=== PATIENT | male | born 1955 | race Caucasian/White ===

== ENCOUNTER 2020-02-17 16:34 | Emergency (ER) | payer MEDICARE, OTHER ==
[~2020-02-17] VITALS: Ht 182.9 cm; Wt 90.7 kg
[~2020-02-17 16:34] MED LIST: ANDROGEL; ASA81BEC PO; BRILINTA60 MG PO; CLARITIN10 MG PO; DESMOPRESSIN A0.2 M2 PO; EFFIENT10 MG PO; ESCITALOPRAM OX20 MG PO; FIBER THERAPY500 MG PO; HYTRIN; HYTRIN 5 M5 MG/1 CAP PO; IMIPRAMINE HCL10 MG PO; LIPITOR10 MG PO; LOPERAMIDE 2 MG2 M1 PO; LOPRESSOR 50 MG PO; LOPRESSOR 50 MG50 M1 PO; METFORMIN HCL500 MG PO; MICARDIS HCT 41 EACH PO; NITROGLYCERIN0.4 MG SL; RANEXA500 MG PO; SIMVASTATIN40 MG PO; TELMISARTAN-HC1 EAC2 PO; TESTIM5 GM; VIBERZI75 MG PO; VITAMIN D250000 UNIT PO; ZESTRIL PO
[2020-02-17] MEDS ORDERED: KLOR-CON M2020 MEQ PO (16:58)
[2020-02-17] MEDS ORDERED: QUESTRAN PACKET4 GM PO (16:59)
[2020-02-17] MEDS ORDERED: VOLTAREN GEL 1100 G1 TOP (16:59)
[2020-02-17] MEDS ORDERED: VITAMIN D-40010 MCG PO (16:59)
[2020-02-17] MEDS ORDERED: ATORVASTATIN CA20 MG PO (16:59)
[2020-02-17] MEDS ORDERED: NORVASC 2.5 MG2.5 M1 PO (16:59)
[2020-02-17] MEDS ORDERED: FLONASE 0.05%50 MCG NARES (17:00)
[2020-02-17] MEDS ORDERED: ESCITALOPRA5 MG/5 ML PO (17:00)
[2020-02-17] MEDS ORDERED: AVALIDE 150-121 EACH PO (17:01)
[2020-02-17] MEDS ORDERED: KEFLEX500 M2 PO (17:58)
[2020-02-17 18:22] VITALS: BP 139/68
== END 2020-02-17 18:23 | disposition home or self-care (01) ==
LOC: M.ERS 16:34
DX: S62.662A Nondisplaced fracture of distal phalanx of right middle finger, initial encounter for closed fracture (principal); S61.212A Laceration without foreign body of right middle finger without damage to nail, initial encounter; I10 Essential (primary) hypertension; Z88.5 Allergy status to narcotic agent; W23.0XXA Caught, crushed, jammed, or pinched between moving objects, initial encounter; Y93.89 Activity, other specified; Y92.89 Other specified places as the place of occurrence of the external cause; Y99.8 Other external cause status

== ENCOUNTER → 2020-12-02 | Outpatient (CLI) | payer MEDICARE, OTHER ==
[~2020-12-02] VITALS: Ht 182.9 cm; Wt 118.8 kg
[2020-12-02] VITALS (8 sets, daily range): BP systolic 127–151; BP diastolic 68–84
[~2020-12-02] MED LIST changes: +ATORVASTATIN CA20 MG PO; +AVALIDE 150-121 EACH PO; +CARVEDILOL12.5 MG PO; +CHILDREN'S ZYRT10 M1 PO; +ESCITALOPRA5 MG/5 ML PO; +FLONASE 0.05%50 MCG NARES; +GLIMEPIRIDE1 MG PO; -HYTRIN 5 M5 MG/1 CAP PO; +IRON325 M1 PO; +KEFLEX500 M2 PO; +KLOR-CON M2020 MEQ PO; +NAPROXEN SODIU220 M2 PO; +NORVASC 2.5 MG2.5 M1 PO; +QUESTRAN PACKET4 GM PO; +TERAZOSIN HCL10 MG PO; +VITAMIN D-40010 MCG PO; +VOLTAREN GEL 1100 G1 TOP
[2020-12-02 08:34] LABS: HEMATOCRIT 37.9 % (42.0-52.0); HEMOGLOBIN 13.3 gm/dL (14.0-18.0); MCH 31.2 pg (26.0-34.0); MCV 88.9 fL (80.0-100.0); MPV 7.2 fl. (7.2-11.1); RBC 4.26 mil/uL (4.50-6.00); RDW-CV 13.5 % (10.5-14.5); WBC 5.1 thou/uL (4.0-11.0)
[2020-12-02 08:41] LABS: ANION GAP 8 mmol/L (7-16); BUN 12 mg/dL (7-18); CALCIUM 8.6 mg/dL (8.5-10.1); CHLORIDE 100 mmol/L (98-107); CO2 25 mmol/L (21-32); CREATININE 0.9 mg/dL (0.6-1.3); GLUCOSE 119 mg/dL (70-99); POTASSIUM 4.3 mmol/L (3.5-5.1); SODIUM 133 mmol/L (136-145)
[2020-12-02 08:45] LABS: APTT 23.1 Seconds (25.0-31.3); PROTIME 10.5 Seconds (9.20-11.50)
[2020-12-02 08:46] LABS: ALBUMIN 3.8 g/dL (3.4-5.0); ALKALINE PHOSPHATASE 64 U/L (46-116); CHOLESTEROL 107 mg/dL (<200); HDL CHOLESTEROL 47 mg/dL (>40); LDL CHOLESTEROL 40 mg/dL (<100); SGOT 24 U/L (15-37); SGPT 50 U/L (30-65); TC:HDL 2.3 Ratio (Not establshd); TOTAL BILIRUBIN 0.6 mg/dL (<0.1-1.0); TOTAL PROTEIN 6.4 g/dL (6.4-8.2); TRIGLYCERIDE 103 mg/dL (<150); VLDL 21 mg/dL (<40)
[2020-12-02 08:50] LABS: SERUM ASSESSMENT Clear
--- NOTE | 2020-12-02 12:18 | EKG ---
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1955 Requested By: Keon Marie Order Number: [id number] Reading MD: Keon Marie Measurements Intervals [place] Rate: 59 P: 27 DC: 206 QRS: -55 QRSD: 100 T: 103 QT: 427 QTc: 423 Interpretive Statements Sinus rhythm Left anterior fascicular block Abnormal R-wave progression, late transition Nonspecific T abnormalities, lateral leads Baseline wander in lead(s) III,aVL Compared to ECG 12/20/2016 12:40:49 Left ventricular hypertrophy no longer present Early repolarization no longer present Electronically Signed On 12-02-2020 12:17:58 BEATER ENGINEER by Keon Marie [email or web address] <ELECTRONICALLY SIGNED> By: Keon Marie MD, [facility] 12/02/20 1217 5 5 Keon Marie MD, [facility] /EPI
--- NOTE | 2020-12-02 13:45 | CARD ---
[address] [address] CARDIAC CATH REPORT Name: DEONTEMAYLIN Prashant [id number] Admission: 12/02/20 Attend Phys: Keon Marie MD, F Discharge: Date of : 53 Report #: [id number] THIS REPORT FOR: cc: Ulysses Wynn Ghaison F. DO ~ Keon Marie MD [facility] ADDENDUM APPROVED REPORT Study performed: 12/02/2020 09:24:50 Patient Details Patient Status: Out-Patient Room #: The patient is a 65 year-old male Event Personnel Marzena Vincent, Monitor Whitney De Leon, BELIA Petit, [facility] Procedures Performed diagnostic cardiac catheterization [facility] w/o coronaries and ISVA Indication Dyspnea Risk Factors Dysplipidemia , Hypertension Previous Procedures/Diagnoses Previous CABGPrevious PCI, Previous Valve Surgery Admission/Lab Medications/Medications given during procedure Heparin Unfract. Procedure Narrative The patient was brought electively to the Cardiac Catheterization Laboratory and was prepped and draped in a sterile manner. The right wrist was infiltrated with 1% Lidocaine subcutaneous anesthesia. A 6 sheath was inserted into the right radial artery. Coronary angiography was performed using coronary diagnostic catheters. The right coronary system was accessed and visualized with a Diagnostic catheter. The left coronary system was accessed and visualized with a Diagnostic catheter. Left ventricular/Aortic Valve gradient assessed [address] [address] CARDIAC CATH REPORT Name: MAYLIN CLEMONS Prashant Room: [facility]#: [id number] Admission: 12/02/20 Attend Phys: Keon Marie MD, F Discharge: Date of : 53 Report #: [id number] via catheter pullback. Closure device was deployed with a 6 Fr vascband. The patient tolerated the procedure well and there were no complications associated with the procedure. There was no hematoma. Intraoperative Conscious Sedation Sedation start time: 0954 Case end Time: 1026 Versed 3.0 mg Coronary Angiography The patient's coronary anatomy is right dominant. [place] Artery Percent Stenosis Grafts (Complete if Previous CABG=Yes: Percent Stenosis) Attempted cannulating a SVG with both a JR4 and left SVG diagnostic catheters but no SVG's were identified. Diagnostic Cath Left Main 0% stenosis LAD 50% proximal and 40% distal stenosis Diagonal 1 proximally occluded and filled distally by bridging collaterals Circumflex 0% stenosis OM3 retrograd flow noted into occluded SVG Right Coronary proximal and distal stent with 0% stenosis. 30% mid stenosis noted Left Ventriculography Left Ventriculography was not performed. Aortic root injection showed trace aortic insufficiency. No patent SVG's were identified. Hemodynamics The aortic pressure is 106/51 mmHg with a mean of 62 mmHg. The left ventricular pressure is 107 mmHg with a mean of mmHg. The left ventricular end diastolic pressure is 12 mmHg. There was no gradient across the aortic valve upon pullback. Pullback from the left ventricle to the aorta revealed no gradient across the aortic valve. Conclusion 1. chronically occluded first diagonal branch that filled by collaterals 2. SVG filled retrograde from the third marginal branch and [facility] [address] [place] [address] CARDIAC CATH REPORT Name: MAYLIN CLEMONS Room: [facility]#: [id number] Admission: 12/02/20 Attend Phys: Keon Marie MD, F Discharge: Date of : 53 Report #: [id number] appearred chronically occluded. 3. patent stents in the proximal and distal RCA 4. trace posthetic tissue aortic valve insufficiency noted on aortic root injection. Recommendations Aggressive Medical Therapy <ELECTRONICALLY SIGNED> By: Keon Marie MD, FACC 12/02/20 1344 1344 1344Ddiann Marie MD, FACC /INF
== END | disposition home or self-care (01) ==
LOC: M.CL 07:54
PROVIDERS: ATTEND Internal Medicine Cardiovascular Disease
DX: R06.00 Dyspnea, unspecified (principal); I25.810 Atherosclerosis of coronary artery bypass graft(s) without angina pectoris; I10 Essential (primary) hypertension; E11.9 Type 2 diabetes mellitus without complications; E78.00 Pure hypercholesterolemia, unspecified; E78.5 Hyperlipidemia, unspecified; G47.30 Sleep apnea, unspecified; Z95.1 Presence of aortocoronary bypass graft; Z98.890 Other specified postprocedural states; Z90.49 Acquired absence of other specified parts of digestive tract; Z79.899 Other long term (current) drug therapy; Z85.05 Personal history of malignant neoplasm of liver; Z85.038 Personal history of other malignant neoplasm of large intestine; Z88.8 Allergy status to other drugs, medicaments and biological substances; Z20.828 Contact with and (suspected) exposure to other viral communicable diseases; Z79.82 Long term (current) use of aspirin; Z79.01 Long term (current) use of anticoagulants; Z95.2 Presence of prosthetic heart valve

== ENCOUNTER 2021-08-11 10:00 | Observation (INO) | payer MEDICARE, OTHER ==
[~2021-08-11] VITALS: Ht 182.9 cm; Wt 113.4 kg
[2021-08-11 10:33] VITALS: BP 191/98
[2021-08-11] MEDS ORDERED: LOSARTAN-HCTZ1 EAC3 PO (10:40)
[2021-08-11 11:50] LABS: URINE BILIRUBIN NEGATIVE (Negative); URINE BLOOD NEGATIVE (Negative); URINE CLARITY CLEAR; URINE COLOR YELLOW; URINE GLUCOSE-RANDOM NEGATIVE (Negative); URINE KETONES NEGATIVE (Negative); URINE LEUKOCYTES-REFLEX NEGATIVE (Negative); URINE NITRITE-REFLEX NEGATIVE (Negative); URINE PROTEIN NEGATIVE (Negative); URINE SPECIFIC GRAVITY >= 1.030 (1.005-1.030); URINE UROBILINOGEN 0.2 E.U./dl (0.2-1.0)
[2021-08-11 12:03] LABS: HEMATOCRIT 40.3 % (42.0-52.0); HEMOGLOBIN 14.1 gm/dL (14.0-18.0); MCV 88.7 fL (80.0-100.0); NUCLEATED RBCS 0 /100WBC; PLATELET COUNT* 231 thou/uL (150-400); RBC 4.55 mil/uL (4.50-6.00); WBC 15.1 thou/uL (4.0-11.0)
[2021-08-11 12:12] LABS: CALCIUM 9.8 mg/dL (8.5-10.1); POTASSIUM 4.5 mmol/L (3.5-5.1)
[2021-08-11 12:16] LABS: ALBUMIN 4.5 g/dL (3.4-5.0); TOTAL BILIRUBIN 1.1 mg/dL (<0.1-1.0); TOTAL PROTEIN 7.8 g/dL (6.4-8.2)
[2021-08-11 12:38] LABS: ABSOLUTE EOSINOPHILS 0.3 thou/uL (0.0-0.7); ABSOLUTE LYMPHOCYTES 1.7 thou/uL (0.8-5.3); ABSOLUTE MONOCYTES 0.9 thou/uL (0.0-1.2); ABSOLUTE NEUTROPHILS 12.2 thou/uL (1.6-8.1); PLATELET ESTIMATE ADEQUATE
--- NOTE | 2021-08-11 13:04 | EKG ---
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1955 Requested By: Ondina Owusu Order Number: [id number] MD: Keon Marie Measurements Intervals [place] Rate: 69 P: 9 WV: 197 QRS: -62 QRSD: 104 T: 79 QT: 412 QTc: 442 Interpretive Statements Sinus rhythm Left anterior fascicular block Abnormal R-wave progression, late transition Borderline T wave abnormalities Baseline wander in lead(s) V1,V2 Compared to ECG 12/02/2020 09:26:24 No significant changes Electronically Signed On 08-11-2021 13:04:37 CDT by Keon Marie [email or web address] <ELECTRONICALLY SIGNED> By: Keon Marie MD, FAC 08/11/21 1304 1152 1152 Keon Marie MD, FAC /EPI
[2021-08-11 17:41] VITALS: BP 150/72
--- NOTE | 2021-08-11 18:57 | NUR ---
PATIENT ARRIVED TO UNIT APPROX. 1750 FROM ER FOR ABDOMINAL PAIN. PATIENT IS A&OX4, PLEASANT AND COOPERATIVE WITH CARES. PATIENT UP AD DAWIT IN ROOM. FLUIDS AND PRN MEDICATIONS ADMINISTERED ORDERED. CALL LIGHT WITHIN REACH.
[2021-08-11 19:45] VITALS: BP 136/69
[2021-08-12 04:00] VITALS: BP 149/78
[2021-08-12 04:38] LABS: HEMATOCRIT 33.9 % (42.0-52.0); MCH 31.6 pg (26.0-34.0); MCHC 35.1 g/dL (28.0-37.0); MCV 90.1 fL (80.0-100.0); MPV 7.2 fl. (7.2-11.1); RBC 3.76 mil/uL (4.50-6.00); RDW-CV 13.6 % (10.5-14.5); WBC 9.1 thou/uL (4.0-11.0)
[2021-08-12 04:47] LABS: CALCIUM 7.9 mg/dL (8.5-10.1); HEMOGLOBIN 11.9 gm/dL (14.0-18.0); POTASSIUM 3.6 mmol/L (3.5-5.1)
--- NOTE | 2021-08-12 05:27 | NUR ---
PT A&O X 4. ON RA. FENTANYL GIVEN X 1 FOR PAIN. DENIED N/V. NPO EXCEPT ICECHIPS. UP AD DAWIT. PT SAID HE FEELS BETTER THIS MORNING AND HE IS READY FOR BREAKFAST. NO OTHER CONCERNS AT THIS TIME. CALL LIGHT WITHIN REACH. WILL CONTINUE TO MONITOR.
[2021-08-12 08:00] VITALS: BP 138/79
[2021-08-12 12:25] VITALS: BP 147/78
[2021-08-12 13:09] LABS: ABSOLUTE EOSINOPHILS 0.2 thou/uL (0.0-0.7); ABSOLUTE LYMPHOCYTES 1.3 thou/uL (0.8-5.3); ABSOLUTE MONOCYTES 0.7 thou/uL (0.0-1.2); ABSOLUTE NEUTROPHILS 3.9 thou/uL (1.6-8.1); BASOPHILS 0.3 %; EOSINOPHILS 2.7 %; HEMATOCRIT 33.6 % (42.0-52.0); HEMOGLOBIN 11.7 gm/dL (14.0-18.0); LYMPHOCYTES 21.1 %; MCHC 34.9 g/dL (28.0-37.0); MCV 89.1 fL (80.0-100.0); MONOCYTES 11.3 %; MPV 6.7 fl. (7.2-11.1); NUCLEATED RBCS 0 /100WBC; PLATELET COUNT* 187 thou/uL (150-400); POLYS 64.6 %; RBC 3.78 mil/uL (4.50-6.00); RDW-CV 13.8 % (10.5-14.5); WBC 6.1 thou/uL (4.0-11.0)
[2021-08-12 17:09] VITALS: BP 142/78
--- NOTE | 2021-08-12 19:49 | NUR ---
patient dicharge instruction competed , including discharge medication . removed IV line before discharge . No issue voiced at this time.
== END 2021-08-12 19:15 | disposition home or self-care (01) ==
LOC: M.ERS 10:00 → M.TBA-ER 14:59 → M.2W 17:50
PROVIDERS: Physician Assistant; ADMIT Internal Medicine; ATTEND Internal Medicine
DX: K43.9 Ventral hernia without obstruction or gangrene (principal); Z20.822 Contact with and (suspected) exposure to COVID-19; K56.609 Unspecified intestinal obstruction, unspecified as to partial versus complete obstruction; E11.9 Type 2 diabetes mellitus without complications; E78.5 Hyperlipidemia, unspecified; G47.30 Sleep apnea, unspecified; I25.2 Old myocardial infarction; Z85.038 Personal history of other malignant neoplasm of large intestine; D72.829 Elevated white blood cell count, unspecified; E87.1 Hypo-osmolality and hyponatremia; M62.08 Separation of muscle (nontraumatic), other site; Z79.84 Long term (current) use of oral hypoglycemic drugs; Z79.899 Other long term (current) drug therapy

== ENCOUNTER 2021-09-08 07:34 | Inpatient (IN) | payer MEDICARE, OTHER ==
[~2021-09-08] VITALS: Ht 182.9 cm; Wt 117.8 kg
--- NOTE | ~2021-09-08 | H ---
[address] [address] HISTORY AND PHYSICAL Name: MAYLIN CLEMONS Room: [address] IN ..#: [id number] Admission: 09/08/21 Attend Phys: Quinton Wang DO Discharge: 09/10/21 Date of : 53 Report #: [id number] THIS REPORT FOR: cc: Lizette Jacques MD, Lin W. MD [facility],Medical Records Staff ~ Please refer to the History and Physical performed in the physician's office. By: 0647Medical Records Staff [facility] /JAE
--- NOTE | ~2021-09-08 | OP ---
[address] [address] OPERATIVE REPORT Name: MAYLIN CLEMONS Room: [place] [address] ADM IN .R.#: [id number] Admission: 09/08/21 Attend Phys: Quinton Wang DO Discharge: Date of : 53 Report #: [id number] THIS REPORT FOR: cc: Lizette Jacques MD, Lin W. MD Kramer, Adam P. DO ~ cc: Lizette Jacques MD DATE OF SURGERY: 09/08/2021 REFERRING PHYSICIAN: Lizette Jacques MD PREOPERATIVE DIAGNOSIS: Ventral hernia. POSTOPERATIVE DIAGNOSIS: Ventral hernia plus intraabdominal adhesions. PROCEDURES: Da Dann robotic-assisted laparoscopic ventral hernia repair with 15 x [address] mesh and lysis of adhesions lasting greater than 90 minutes. SURGEON: Quinton Wang DO SPRINKLER TRUCK DRIVER: Jose Leonard DO, PGY1, resident. SECOND RN PERIOPERATIVE: Student, Dr. Ethan Albert, MS4. ANESTHESIA: General endotracheal and TAP blocks. ESTIMATED BLOOD LOSS: Less than 20 mL. COMPLICATIONS: None. DESCRIPTION OF PROCEDURE: After obtaining proper consents and discussing risks and complications with the patient, he was taken to the operating room, laid in the supine position and administered general anesthesia. TAP blocks were then performed by anesthesia as well. He was then prepped and draped in the usual sterile fashion. A timeout was performed. We confirmed the appropriate patient and procedure. Preoperative antibiotics had been given. SCDs were in place. We then made a small right subcostal incision. This was carried down through the skin into the subcutaneous tissue using electrocautery for hemostasis. I then used a 12 mm Visiport and a [place] 0-degree scope to enter the peritoneal cavity. Once peritoneal cavity was entered, insufflation was begun. Once insufflation was complete, we attempted to visualize the entire abdominal cavity; however, there were quite a few adhesions throughout the entire abdomen. The right lower and right lateral quadrants were free of adhesions so I was able to place two more da Dann ports there. [place] [address] OPERATIVE REPORT Name: MAYLIN CLEMONS Room: [place] [address] [facility].#: [id number] Admission: 09/08/21 Attend Phys: Quinton Wang DO Discharge: Date of : 53 Report #: [id number] Dann robot. Once the robot was docked we then inserted monopolar scissors in the right lower quadrant and bipolar fenestrated grasper in the right upper quadrant. I then spent approximately 90 minutes taking down adhesions. The majority of these were taken down using blunt and sharp dissection with laparoscopic scissors. Very rarely did I use any electrocautery as there was quite a bit of bowel in this area, so most of the dissection was done using laparoscopic scissors spreading until I was able to visualize the adhesions versus the small bowel and then lysing the adhesions. Once these were all completed, I did identify a very wide mouthed hernia in the midline. We did place a ruler into the peritoneal cavity and I measured this at 9 cm long x approximately 5.5 cm wide. We then elected to close the hernia defect and then used a 15 x [address] mesh. We inserted the needles and the mesh into the peritoneal cavity. I then used three different sutures to close the hernia defect. This was a remarkably easy to close actually and this was done with the abdominal pressure down to 8 mmHg pressure. Once the defect was closed, I then placed the Ventralight mesh up against the abdominal wall. It was held in place using sutures. I then circumferentially sutured the mesh in place using 2-0 absorbable V-Loc suture. The defect had been closed using 0 absorbable 180-day suture. Once the mesh was all sutured in place, I also placed 4 sutures in the middle of the mesh to secure the mesh to the abdominal wall and this was done using 2-0 Vicryl suture. I then removed all of the needles and once the needles were removed the insufflation was stopped and all air was released. I then rescrubbed and went back to the patient's bedside. We removed the 12 mm trocar and used a PMI closure device before the insufflation was completely stopped. To close the fascia of the right upper quadrant incision we then closed all of the incisions using 4-0 Monocryl subcuticular stitches and Dermabond. The patient was then awakened in the operating room and transported to recovery room in stable condition. Sponge, needle and instrument counts were all correct at the end of the procedure. By: 1301 1349Aleonarda Wang DO /yahaira
[~2021-09-08 07:34] MED LIST changes: +LOSARTAN-HCTZ1 EAC3 PO; +VITAMIN D21250 MCG PO
[2021-09-08 08:08] LABS: HEMATOCRIT 37.4 % (42.0-52.0); MCH 31.1 pg (26.0-34.0); MCHC 34.7 g/dL (28.0-37.0); MCV 89.7 fL (80.0-100.0); RBC 4.17 mil/uL (4.50-6.00); RDW-CV 13.6 % (10.5-14.5); WBC 6.6 thou/uL (4.0-11.0)
[2021-09-08 08:22] LABS: CALCIUM 8.8 mg/dL (8.5-10.1); POTASSIUM 4.4 mmol/L (3.5-5.1)
[2021-09-08 15:15] VITALS: BP 143/67
[2021-09-08 20:00] VITALS: BP 147/73
[2021-09-08 23:50] VITALS: BP 154/77
[2021-09-09 04:00] VITALS: BP 135/69
[2021-09-09 04:09] LABS: HEMATOCRIT 37.5 % (42.0-52.0); HEMOGLOBIN 12.9 gm/dL (14.0-18.0); MCH 31.2 pg (26.0-34.0); MCHC 34.3 g/dL (28.0-37.0); MPV 7.1 fl. (7.2-11.1); NUCLEATED RBCS 0 /100WBC; PLATELET COUNT* 192 thou/uL (150-400); RBC 4.12 mil/uL (4.50-6.00); RDW-CV 13.9 % (10.5-14.5)
[2021-09-09 04:19] LABS: CALCIUM 8.7 mg/dL (8.5-10.1); POTASSIUM 4.1 mmol/L (3.5-5.1)
[2021-09-09 04:22] LABS: MAGNESIUM 1.8 mg/dL (1.8-2.4); PHOSPHORUS* 4.6 mg/dL (2.5-4.9)
[2021-09-09 07:03] LABS: ABSOLUTE LYMPHOCYTES 0.9 thou/uL (0.8-5.3); ABSOLUTE MONOCYTES 0.2 thou/uL (0.0-1.2); ABSOLUTE NEUTROPHILS 9.9 thou/uL (1.6-8.1); PLATELET ESTIMATE ADEQUATE
[2021-09-09 08:00] VITALS: BP 122/69
[2021-09-09 16:23] VITALS: BP 148/71
[2021-09-09 19:45] VITALS: BP 164/72
[2021-09-10 04:42] LABS: ABSOLUTE EOSINOPHILS 0.1 thou/uL (0.0-0.7); ABSOLUTE LYMPHOCYTES 1.1 thou/uL (0.8-5.3); ABSOLUTE MONOCYTES 1.2 thou/uL (0.0-1.2); ABSOLUTE NEUTROPHILS 7.7 thou/uL (1.6-8.1); BASOPHILS 0.2 %; EOSINOPHILS 0.6 %; HEMATOCRIT 35.6 % (42.0-52.0); HEMOGLOBIN 12.1 gm/dL (14.0-18.0); LYMPHOCYTES 10.8 %; MCH 31.4 pg (26.0-34.0); MCHC 34.1 g/dL (28.0-37.0); MCV 92.1 fL (80.0-100.0); MONOCYTES 12.1 %; NUCLEATED RBCS 0 /100WBC; PLATELET COUNT* 170 thou/uL (150-400); POLYS 76.3 %; RBC 3.87 mil/uL (4.50-6.00); RDW-CV 13.9 % (10.5-14.5)
[2021-09-10 05:11] LABS: CALCIUM 8.7 mg/dL (8.5-10.1); CREATININE 1.2 mg/dL (0.6-1.3); POTASSIUM 3.9 mmol/L (3.5-5.1)
[2021-09-10 08:20] VITALS: BP 132/64
[2021-09-10 15:09] VITALS: BP 132/64
== END 2021-09-10 15:25 | disposition home or self-care (01) | DRG 336 ==
LOC: M.SUR 07:34 → M.TBA 13:41 → M.SUR 15:05 → M.3W 15:17
PROVIDERS: Anesthesiology; Surgery; ADMIT Surgery; ATTEND Surgery
PROC: 8E0W4CZ Robotic Assisted Procedure of Trunk Region, Percutaneous Endoscopic Approach (ICD-10-PCS; principal; 2021-09-08)
PROC: 0DNW4ZZ Release Peritoneum, Percutaneous Endoscopic Approach (ICD-10-PCS; principal; 2021-09-08)
PROC: 0WUF4JZ Supplement Abdominal Wall with Synthetic Substitute, Percutaneous Endoscopic Approach (ICD-10-PCS; principal; 2021-09-08)
DX: K43.9 Ventral hernia without obstruction or gangrene (principal); E87.1 Hypo-osmolality and hyponatremia; K66.0 Peritoneal adhesions (postprocedural) (postinfection); Z20.822 Contact with and (suspected) exposure to COVID-19; Z88.6 Allergy status to analgesic agent; Z23 Encounter for immunization; Z95.2 Presence of prosthetic heart valve; Z85.038 Personal history of other malignant neoplasm of large intestine

== ENCOUNTER 2021-09-22 10:44 | Inpatient (IN) | payer MEDICARE, OTHER ==
[~2021-09-22] VITALS: Ht 182.9 cm; Wt 124.3 kg
--- NOTE | ~2021-09-22 | OP ---
[address] [address] OPERATIVE REPORT Name: MAYLIN CLEMONS Room: [address] IN M.R.#: [id number] Admission: 09/22/21 Attend Phys: Quinton Wang DO Discharge: Date of : 53 Report #: [id number] THIS REPORT FOR: cc: Lizette Jacques MD, Lin W. MD Kramer, Adam P. DO ~ cc: Lizette Jacques MD DATE OF SURGERY: 09/26/2021 PREOPERATIVE DIAGNOSIS: Abdominal wall wound, status post ventral hernia repair approximately two weeks prior. POSTOPERATIVE DIAGNOSIS: Abdominal wall wound, status post ventral hernia repair approximately two weeks prior. PROCEDURE: Abdominal wall exploration with washout and placement of a wound VAC. SURGEON: Quinton Wang DO GARBAGE COLLECTOR SUPERVISOR: Dr. Remberto Newton. TYPE OF ANESTHESIA: General endotracheal. ESTIMATED BLOOD LOSS: Less than 50 mL COMPLICATIONS: None. DESCRIPTION OF PROCEDURE: After obtaining proper consents and discussing risks and complications with the patient, he was taken to the operating room, laid in the supine position and administered general anesthesia. He was then prepped and draped in the usual sterile fashion. A timeout was performed. We confirmed the appropriate patient and procedure. Preoperative antibiotics had been given. We had discussed with the patient the plans for procedure. At this point, he was prepped and draped in the usual sterile fashion. We felt an area of most fluctuance in the mid abdomen and a small, approximately 3 cm incision was made and carried down through the skin into the subcutaneous tissue using electrocautery for hemostasis. We immediately encountered some purulent fluid. We cultured this fluid for anaerobes and aerobes. I then was able to place my finger inside the wound, could immediately feel mesh below my finger. I was able to sweep and break up some loculations and then we were able to suction all of this purulent fluid out of the peritoneal cavity. I then extended the incision to make an approximately 7-8 cm long and again we were able to now visualize the entire mesh. The mesh appeared to be attached as it should be 360 degrees around it, but there was what appeared to be [place] [address] OPERATIVE REPORT Name: DEONTEMAYLIN Room: [address] IN [facility].#: [id number] Admission: 09/22/21 Attend Phys: Quinton Wang, Discharge: Date of : 53 Report #: [id number] mesh. At this point, I had talked to the patient previously about either explanting mesh or trying to salvage it and we had discussed that we would most likely try to salvage it and he agreed with that. So at this point, we used a 3 liter bag of saline and used the Pulsavac to copiously irrigate this area. I also debrided any necrotic tissue, which I could identify. Once this was done, I then placed a piece of white foam for wound VAC directly over top of the mesh. We then placed a black foam over top of this and then placed a wound VAC, and because the mesh an intraperitoneal onlay mesh and there was bowel wall just underneath this that is why we placed a white foam. I also placed the wound VAC only to 75 mmHg suction. The patient was then awakened in the operating room and transported to recovery room in stable condition and we did have plans to return the patient to the OR in 2-3 days for wound VAC change and re-washout. By: 1651 1929Aleonarda Wang DO /yahaira
--- NOTE | ~2021-09-22 | OP ---
[address] [address] OPERATIVE REPORT Name: MAYLIN CLEMONS EN Room: [address] IN .R.#: [id number] Admission: 09/22/21 Attend Phys: Quinton Wang DO Discharge: 10/02/21 Date of : 53 Report #: [id number] THIS REPORT FOR: cc: Lizette Jacques MD, Lin W. MD Kramer, Adam P. DO ~ cc: Lizette Jacques MD DATE OF SURGERY: 09/29/2021 PREOPERATIVE DIAGNOSIS: Abdominal wall abscess, status post ventral hernia repair. POSTOPERATIVE DIAGNOSIS: Abdominal wall abscess, status post ventral hernia repair. PROCEDURES: Abdominal washout and wound VAC change under anesthesia. SURGEON: Quinton Wang DO. ANESTHESIA: General endotracheal. ESTIMATED BLOOD LOSS: Less than 20 mL. COMPLICATIONS: None. DESCRIPTION OF PROCEDURE: After obtaining proper consents and discussing risks and complications with the patient, he was taken to the operating room, laid in the supine position, administered general anesthesia. We then removed the patient's previously placed wound VAC. The area was then prepped and draped with Betadine. We then performed a timeout and confirmed the appropriate patient and procedure. I then explored the abdominal wound and again we identified the mesh, which had been placed. The cavity did close down in small amount since 3 days prior when we washed out originally. There did appear to be some devitalized tissue again noted in the wound; however, there was no discoloration of the mesh at this time. We again copiously irrigated using a Pulsavac with 3 liters of saline solution. Again, we then placed a white foam over top of the mesh and then placed a black foam over top of that and then placed a wound VAC in the standard fashion. The patient tolerated the procedure well. Sponge, needle and instrument counts were all correct at the end of the procedure. The appropriate foam counts were done and the [place], [place] [address] OPERATIVE REPORT Name: DEONTEMAYLIN Room: [address] IN [facility].#: [id number] Admission: 09/22/21 Attend Phys: Quinton Wang DO Discharge: 10/02/21 Date of : 53 Report #: [id number] placed from the previous operation, was removed. The appropriate counts for this operation were also noted in the medical record. By: 0917 [id number] Wang DO /nt
--- NOTE | ~2021-09-22 | OP ---
[address] [address] OPERATIVE REPORT Name: MAYLIN CLEMONS Room: [address] IN .R.#: [id number] Admission: 09/22/21 Attend Phys: Quinton Wang DO Discharge: 10/02/21 Date of : 53 Report #: [id number] THIS REPORT FOR: cc: Lizette Jacques MD, Lin W. MD Kramer, Adam P. DO ~ cc: Lizette Jacques MD DATE OF SURGERY: 09/26/2021 PREOPERATIVE DIAGNOSIS: Abdominal wall abscess, status post ventral hernia repair. POSTOPERATIVE DIAGNOSIS: Abdominal wall abscess, status post ventral hernia repair. PROCEDURE: Incision and drainage of abdominal wall abscess with washout and placement of a wound VAC. SURGEON: Dr. Quinton Wang. ANESTHESIA: General endotracheal. ESTIMATED BLOOD LOSS: Less than 20 mL COMPLICATIONS: None. DESCRIPTION OF PROCEDURE: After obtaining proper consents and discussing risks and complications with the patient, he was taken to the operating room. He previously had a percutaneous drain placed by Interventional Radiology. This drain was left intact when we did the procedure. After a timeout was performed and the patient had been prepped and draped in the usual sterile fashion we made a small incision along the midline of the patient where he had an area of fluctuance and had a small amount of drainage come out. As soon as we made this incision, we identified purulent fluid that had no odor to it. This fluid was immediately cultured for anaerobes and aerobes, did not appear to have any similarity to small or large intestinal contents, just appeared to be purulent fluid. We immediately suctioned this fluid out and then enlarged the incision to approximately 5-6 cm in length along the midline. We could immediately visualize the mesh, which had been placed from his previous hernia repair. The mesh appeared to be quite clean. We then copiously irrigated the area using a Pulsavac with 3 liters of saline solution to irrigate the abdominal wound. Again, there was also some debridement of some devitalized tissue, which was identified in there. I then planned on placing a white foam, but I did confer with one of my partners who also does wound care and has been doing wound care for quite some time, Dr. Bridges and she confirmed that [place] [address] OPERATIVE REPORT Name: MAYLIN CLEMONS Room: [address] IN [facility]#: [id number] Admission: 09/22/21 Attend Phys: Quinton Wang, DO Discharge: 10/02/21 Date of : 53 Report #: [id number] of the mesh would be ideal to help prevent any possible fistula. She also recommended to use a lower than normal suction and suggested at this point that we use either 75 to 100 mmHg suction. Following this, I did cut a white foam to size and place this over the visible mesh. I then cut a black foam to size to fit into the incisional defect. We then placed the wound VAC in the normal fashion. The wound VAC was set to 75 mmHg. We did make plans for the patient to return to the operating room in about 72 hours unless there was some major changes that require him to come back sooner. By: 0936Quinton Wang DO /nt
[2021-09-22 11:01] VITALS: BP 87/52
[2021-09-22 11:55] LABS: HEMATOCRIT 31.4 % (42.0-52.0); HEMOGLOBIN 10.7 gm/dL (14.0-18.0); MCH 30.2 pg (26.0-34.0); MCV 88.7 fL (80.0-100.0); MPV 6.7 fl. (7.2-11.1); NUCLEATED RBCS 0 /100WBC; PLATELET COUNT* 439 thou/uL (150-400); RBC 3.53 mil/uL (4.50-6.00); RDW-CV 13.5 % (10.5-14.5); WBC 20.2 thou/uL (4.0-11.0)
[2021-09-22 11:57] LABS: CALCIUM 8.1 mg/dL (8.5-10.1); CREATININE 1.8 mg/dL (0.6-1.3); POTASSIUM 4.1 mmol/L (3.5-5.1)
[2021-09-22 12:02] LABS: ALBUMIN 2.1 g/dL (3.4-5.0)
[2021-09-22 12:26] LABS: ABSOLUTE LYMPHOCYTES 0.6 thou/uL (0.8-5.3); ABSOLUTE NEUTROPHILS 18.6 thou/uL (1.6-8.1); METAMYELOCYTES 2 %
[2021-09-22 12:27] LABS: PLATELET ESTIMATE ADEQUATE
[2021-09-22 19:00] VITALS: BP 88/41
[2021-09-22 20:45] VITALS: BP 89/40
[2021-09-23 04:58] LABS: ABSOLUTE EOSINOPHILS 0.1 thou/uL (0.0-0.7); ABSOLUTE LYMPHOCYTES 0.7 thou/uL (0.8-5.3); ABSOLUTE MONOCYTES 1.6 thou/uL (0.0-1.2); ABSOLUTE NEUTROPHILS 17.8 thou/uL (1.6-8.1); BASOPHILS 0.2 %; EOSINOPHILS 0.4 %; HEMATOCRIT 27.7 % (42.0-52.0); HEMOGLOBIN 9.6 gm/dL (14.0-18.0); LYMPHOCYTES 3.5 %; MCH 30.7 pg (26.0-34.0); MCHC 34.8 g/dL (28.0-37.0); MCV 88.4 fL (80.0-100.0); MONOCYTES 7.8 %; MPV 6.4 fl. (7.2-11.1); NUCLEATED RBCS 0 /100WBC; PLATELET COUNT* 410 thou/uL (150-400); POLYS 88.1 %; RBC 3.14 mil/uL (4.50-6.00); RDW-CV 13.9 % (10.5-14.5); WBC 20.2 thou/uL (4.0-11.0)
[2021-09-23 05:12] LABS: CALCIUM 7.9 mg/dL (8.5-10.1); CREATININE 1.9 mg/dL (0.6-1.3); POTASSIUM 3.9 mmol/L (3.5-5.1)
[2021-09-23 05:16] LABS: ALBUMIN 1.9 g/dL (3.4-5.0); TOTAL BILIRUBIN 0.8 mg/dL (<0.1-1.0); TOTAL PROTEIN 5.6 g/dL (6.4-8.2)
[2021-09-23 08:05] VITALS: BP 99/52
[2021-09-23 12:45] VITALS: BP 113/51
[2021-09-23 18:05] VITALS: BP 90/42
[2021-09-23 19:16] LABS: CALCIUM 7.8 mg/dL (8.5-10.1); CREATININE 1.8 mg/dL (0.6-1.3)
[2021-09-23 20:00] VITALS: BP 96/51
[2021-09-24 00:27] VITALS: BP 100/50
[2021-09-24 04:56] LABS: ABSOLUTE BASOPHILS 0.1 thou/uL (0.0-0.2); ABSOLUTE EOSINOPHILS 0.1 thou/uL (0.0-0.7); ABSOLUTE LYMPHOCYTES 0.8 thou/uL (0.8-5.3); ABSOLUTE MONOCYTES 1.3 thou/uL (0.0-1.2); ABSOLUTE NEUTROPHILS 18.5 thou/uL (1.6-8.1); BASOPHILS 0.3 %; EOSINOPHILS 0.5 %; HEMATOCRIT 25.1 % (42.0-52.0); HEMOGLOBIN 8.7 gm/dL (14.0-18.0); LYMPHOCYTES 3.8 %; MCH 30.9 pg (26.0-34.0); MCHC 34.7 g/dL (28.0-37.0); MCV 88.9 fL (80.0-100.0); MONOCYTES 6.1 %; MPV 6.3 fl. (7.2-11.1); NUCLEATED RBCS 0 /100WBC; PLATELET COUNT* 376 thou/uL (150-400); POLYS 89.3 %; RBC 2.82 mil/uL (4.50-6.00); RDW-CV 13.7 % (10.5-14.5); WBC 20.7 thou/uL (4.0-11.0)
[2021-09-24 05:13] LABS: ALBUMIN 1.6 g/dL (3.4-5.0); CALCIUM 7.7 mg/dL (8.5-10.1); CREATININE 1.6 mg/dL (0.6-1.3); MAGNESIUM 1.8 mg/dL (1.8-2.4); POTASSIUM 3.6 mmol/L (3.5-5.1); TOTAL BILIRUBIN 0.7 mg/dL (<0.1-1.0); TOTAL PROTEIN 5.1 g/dL (6.4-8.2)
[2021-09-24 05:58] VITALS: BP 98/65
[2021-09-24 08:26] VITALS: BP 112/62
[2021-09-24 10:22] LABS: URINE BILIRUBIN NEGATIVE (Negative); URINE BLOOD NEGATIVE (Negative); URINE CLARITY CLEAR; URINE COLOR YELLOW; URINE GLUCOSE-RANDOM NEGATIVE (Negative); URINE KETONES NEGATIVE (Negative); URINE LEUKOCYTES NEGATIVE (Negative); URINE NITRITE NEGATIVE (Negative); URINE PROTEIN NEGATIVE (Negative)
[2021-09-24 10:35] LABS: URINE POTASSIUM-RANDOM 20.7 mmol/L
[2021-09-24 12:00] VITALS: BP 118/60
[2021-09-24 16:00] VITALS: BP 132/71
[2021-09-24 20:30] VITALS: BP 134/70
[2021-09-25] VITALS: BP 149/59
[2021-09-25 04:00] VITALS: BP 137/78
[2021-09-25 05:25] LABS: ABSOLUTE BASOPHILS 0.1 thou/uL (0.0-0.2); ABSOLUTE EOSINOPHILS 0.2 thou/uL (0.0-0.7); ABSOLUTE LYMPHOCYTES 0.9 thou/uL (0.8-5.3); ABSOLUTE MONOCYTES 1.1 thou/uL (0.0-1.2); ABSOLUTE NEUTROPHILS 15.9 thou/uL (1.6-8.1); BASOPHILS 0.3 %; EOSINOPHILS 0.9 %; LYMPHOCYTES 4.8 %; MCH 30.1 pg (26.0-34.0); MCHC 33.5 g/dL (28.0-37.0); MCV 89.9 fL (80.0-100.0); MONOCYTES 6.2 %; MPV 6.3 fl. (7.2-11.1); NUCLEATED RBCS 0 /100WBC; POLYS 87.8 %; RBC 3.33 mil/uL (4.50-6.00); RDW-CV 13.7 % (10.5-14.5); WBC 18.1 thou/uL (4.0-11.0)
[2021-09-25 05:40] LABS: ALBUMIN 1.8 g/dL (3.4-5.0); CALCIUM 8.2 mg/dL (8.5-10.1); CREATININE 1.2 mg/dL (0.6-1.3); MAGNESIUM 2.2 mg/dL (1.8-2.4); TOTAL BILIRUBIN 0.8 mg/dL (<0.1-1.0); TOTAL PROTEIN 5.8 g/dL (6.4-8.2)
[2021-09-25 05:42] LABS: PLATELET COUNT* 486 thou/uL (150-400)
[2021-09-25 08:07] VITALS: BP 163/72
[2021-09-25 17:12] VITALS: BP 153/74
[2021-09-25 20:00] VITALS: BP 160/74
[2021-09-26 05:05] LABS: HEMATOCRIT 27.9 % (42.0-52.0); HEMOGLOBIN 9.4 gm/dL (14.0-18.0); MCH 30.2 pg (26.0-34.0); MCHC 33.7 g/dL (28.0-37.0); MCV 89.8 fL (80.0-100.0); MPV 6.1 fl. (7.2-11.1); RBC 3.11 mil/uL (4.50-6.00); RDW-CV 13.9 % (10.5-14.5); WBC 15.7 thou/uL (4.0-11.0)
[2021-09-26 05:29] LABS: ALBUMIN 1.9 g/dL (3.4-5.0); CALCIUM 8.3 mg/dL (8.5-10.1); CREATININE 1.1 mg/dL (0.6-1.3); MAGNESIUM 2.1 mg/dL (1.8-2.4); POTASSIUM 4.1 mmol/L (3.5-5.1); TOTAL BILIRUBIN 0.6 mg/dL (<0.1-1.0); TOTAL PROTEIN 5.6 g/dL (6.4-8.2)
[2021-09-26 08:05] VITALS: BP 158/76
[2021-09-26 13:30] VITALS: BP 151/67
[2021-09-26 16:21] VITALS: BP 153/66
[2021-09-26 20:00] VITALS: BP 130/72
[2021-09-27 06:23] LABS: HEMATOCRIT 32.2 % (42.0-52.0); HEMOGLOBIN 10.7 gm/dL (14.0-18.0); MCHC 33.3 g/dL (28.0-37.0); MCV 90.1 fL (80.0-100.0); MPV 6.8 fl. (7.2-11.1); RBC 3.57 mil/uL (4.50-6.00); WBC 13.7 thou/uL (4.0-11.0)
[2021-09-27 06:37] LABS: CALCIUM 8.4 mg/dL (8.5-10.1); POTASSIUM 4.5 mmol/L (3.5-5.1)
[2021-09-27 08:06] VITALS: BP 152/84
[2021-09-27 15:33] VITALS: BP 161/76
[2021-09-27 20:00] VITALS: BP 143/82
[2021-09-28 02:00] VITALS: BP 166/80
[2021-09-28 04:07] LABS: HEMATOCRIT 30.7 % (42.0-52.0); HEMOGLOBIN 10.4 gm/dL (14.0-18.0); MCH 30.5 pg (26.0-34.0); MCHC 33.8 g/dL (28.0-37.0); MCV 90.3 fL (80.0-100.0); MPV 6.9 fl. (7.2-11.1); RBC 3.4 mil/uL (4.50-6.00); RDW-CV 13.7 % (10.5-14.5)
[2021-09-28 04:24] LABS: CALCIUM 8.3 mg/dL (8.5-10.1); CREATININE 0.9 mg/dL (0.6-1.3); POTASSIUM 4.4 mmol/L (3.5-5.1)
[2021-09-28 05:30] VITALS: BP 164/81
[2021-09-28 08:00] VITALS: BP 178/76
[2021-09-28 15:11] VITALS: BP 161/76
[2021-09-28 20:30] VITALS: BP 167/75
[2021-09-29 06:59] LABS: HEMATOCRIT 30.5 % (42.0-52.0); HEMOGLOBIN 10.4 gm/dL (14.0-18.0); MCH 30.4 pg (26.0-34.0); MCHC 34.2 g/dL (28.0-37.0); MCV 89.1 fL (80.0-100.0); MPV 7.2 fl. (7.2-11.1); NUCLEATED RBCS 0 /100WBC; PLATELET COUNT* 168 thou/uL (150-400); RBC 3.42 mil/uL (4.50-6.00); RDW-CV 13.8 % (10.5-14.5); WBC 11.2 thou/uL (4.0-11.0)
[2021-09-29 07:07] LABS: CALCIUM 8.4 mg/dL (8.5-10.1); CREATININE 0.9 mg/dL (0.6-1.3); POTASSIUM 3.8 mmol/L (3.5-5.1)
[2021-09-29 07:49] LABS: ABSOLUTE LYMPHOCYTES 1.1 thou/uL (0.8-5.3); ABSOLUTE MONOCYTES 0.7 thou/uL (0.0-1.2); ABSOLUTE NEUTROPHILS 9.4 thou/uL (1.6-8.1); PLATELET ESTIMATE ADEQUATE
[2021-09-29 15:44] VITALS: BP 179/81
[2021-09-29 20:30] VITALS: BP 168/84
[2021-09-30 05:03] LABS: HEMATOCRIT 31.1 % (42.0-52.0); HEMOGLOBIN 10.6 gm/dL (14.0-18.0); MCH 30.6 pg (26.0-34.0); MCHC 34.1 g/dL (28.0-37.0); MCV 89.7 fL (80.0-100.0); MPV 7.6 fl. (7.2-11.1); RBC 3.46 mil/uL (4.50-6.00); RDW-CV 13.4 % (10.5-14.5); WBC 10.6 thou/uL (4.0-11.0)
[2021-09-30 05:19] LABS: CALCIUM 8.3 mg/dL (8.5-10.1); CREATININE 0.9 mg/dL (0.6-1.3)
[2021-09-30 08:00] VITALS: BP 168/95
[2021-09-30 16:25] VITALS: BP 164/83
[2021-09-30 20:30] VITALS: BP 166/82
[2021-10-01 03:13] LABS: ABSOLUTE EOSINOPHILS 0.3 thou/uL (0.0-0.7); ABSOLUTE LYMPHOCYTES 1.6 thou/uL (0.8-5.3); ABSOLUTE MONOCYTES 0.9 thou/uL (0.0-1.2); ABSOLUTE NEUTROPHILS 6.1 thou/uL (1.6-8.1); BASOPHILS 0.4 %; EOSINOPHILS 3.2 %; HEMATOCRIT 29.2 % (42.0-52.0); LYMPHOCYTES 18.4 %; MCH 30.2 pg (26.0-34.0); MCHC 34.1 g/dL (28.0-37.0); MCV 88.3 fL (80.0-100.0); MONOCYTES 9.5 %; MPV 7.5 fl. (7.2-11.1); NUCLEATED RBCS 0 /100WBC; PLATELET COUNT* 175 thou/uL (150-400); POLYS 68.5 %; RDW-CV 13.9 % (10.5-14.5); WBC 8.9 thou/uL (4.0-11.0)
[2021-10-01 03:16] LABS: CREATININE 0.8 mg/dL (0.6-1.3); POTASSIUM 3.7 mmol/L (3.5-5.1)
[2021-10-01 08:00] VITALS: BP 156/74
[2021-10-01 15:54] VITALS: BP 147/76
[2021-10-01 20:00] VITALS: BP 151/82
[2021-10-02 01:30] VITALS: BP 157/73
[2021-10-02 07:21] LABS: ABSOLUTE EOSINOPHILS 0.3 thou/uL (0.0-0.7); ABSOLUTE LYMPHOCYTES 1.4 thou/uL (0.8-5.3); ABSOLUTE MONOCYTES 0.7 thou/uL (0.0-1.2); ABSOLUTE NEUTROPHILS 4.9 thou/uL (1.6-8.1); BASOPHILS 0.4 %; EOSINOPHILS 3.5 %; LYMPHOCYTES 18.7 %; MCHC 34.3 g/dL (28.0-37.0); MCV 87.4 fL (80.0-100.0); MONOCYTES 9.7 %; MPV 7.4 fl. (7.2-11.1); NUCLEATED RBCS 0 /100WBC; PLATELET COUNT* 228 thou/uL (150-400); POLYS 67.7 %; RBC 3.66 mil/uL (4.50-6.00); RDW-CV 13.7 % (10.5-14.5); WBC 7.3 thou/uL (4.0-11.0)
[2021-10-02 07:27] LABS: CALCIUM 8.3 mg/dL (8.5-10.1); CREATININE 0.9 mg/dL (0.6-1.3); POTASSIUM 3.8 mmol/L (3.5-5.1)
[2021-10-02 08:23] VITALS: BP 143/78
[2021-10-02] MEDS ORDERED: OXYCODONE HCL 55 MG PO (10:57)
[2021-10-02] MEDS ORDERED: ASPIRIN325 PO (10:57)
[2021-10-02] MEDS ORDERED: AUGMENTIN 875-1 EACH PO (10:58)
[2021-10-02 14:43] VITALS: BP 143/78
[2021-10-02 16:12] VITALS: BP 143/78
[2021-10-02 16:21] VITALS: BP 143/78
[2021-10-02 16:57] VITALS: BP 143/78
== END 2021-10-02 16:40 | disposition home health service (06) | DRG 853 ==
LOC: M.ERS 10:44 → M.TBA-ER 15:33 → M.3W 15:33 → M.2W 15:33 → M.3W 09-26 10:17
PROVIDERS: Internal Medicine; Physician Assistant; Surgery; ADMIT Surgery; ATTEND Surgery
DX: A41.9 Sepsis, unspecified organism (principal); N17.0 Acute kidney failure with tubular necrosis; G93.41 Metabolic encephalopathy; R57.1 Hypovolemic shock; L02.211 Cutaneous abscess of abdominal wall; E87.1 Hypo-osmolality and hyponatremia; E46 Unspecified protein-calorie malnutrition; I10 Essential (primary) hypertension; E11.9 Type 2 diabetes mellitus without complications; E78.00 Pure hypercholesterolemia, unspecified; S31.109A Unspecified open wound of abdominal wall, unspecified quadrant without penetration into peritoneal cavity, initial encounter; R74.01 Elevation of levels of liver transaminase levels; E88.09 Other disorders of plasma-protein metabolism, not elsewhere classified; B96.1 Klebsiella pneumoniae [K. pneumoniae] as the cause of diseases classified elsewhere; Z79.82 Long term (current) use of aspirin; Z79.899 Other long term (current) drug therapy; Z85.038 Personal history of other malignant neoplasm of large intestine; Z85.05 Personal history of malignant neoplasm of liver; Z90.49 Acquired absence of other specified parts of digestive tract; Z88.6 Allergy status to analgesic agent; Z68.37 Body mass index [BMI] 37.0-37.9, adult; Z95.2 Presence of prosthetic heart valve; X58.XXXA Exposure to other specified factors, initial encounter; Y93.89 Activity, other specified; Y92.89 Other specified places as the place of occurrence of the external cause; Y99.8 Other external cause status

== ENCOUNTER → 2021-10-04 | Outpatient (CLI) | payer MEDICARE, OTHER ==
[~2021-10-04] MED LIST changes: +ASPIRIN325 PO; +AUGMENTIN 875-1 EACH PO; +OXYCODONE HCL 55 MG PO
== END ==
LOC: M.WC 08:00
PROVIDERS: ATTEND Surgery
DX: T81.31XA Disruption of external operation (surgical) wound, not elsewhere classified, initial encounter (principal); E78.5 Hyperlipidemia, unspecified; G47.30 Sleep apnea, unspecified; I10 Essential (primary) hypertension; Z95.4 Presence of other heart-valve replacement; Z90.49 Acquired absence of other specified parts of digestive tract; Z85.038 Personal history of other malignant neoplasm of large intestine; Z85.05 Personal history of malignant neoplasm of liver; Z79.82 Long term (current) use of aspirin; Z79.84 Long term (current) use of oral hypoglycemic drugs; Y92.238 Other place in hospital as the place of occurrence of the external cause; Y83.8 Other surgical procedures as the cause of abnormal reaction of the patient, or of later complication, without mention of misadventure at the time of the procedure